=== PATIENT | male | born 1965 | race Native Hawaiian/Other Pacific Islander ===

== ENCOUNTER → 2016-03-27 | Outpatient (CLI) | payer OTHER ==
--- NOTE | 2016-03-28 08:19 | RAD ---
EXAM DESCRIPTION: XR FOOT 3 OR MORE VIEWS CLINICAL HISTORY: FOOT PAIN COMPARISON: None available FINDINGS: Three views of the left foot show no acute fracture or malalignment. The joint spaces are well maintained. There is no radiopaque foreign body or soft tissue gas. There is a small calcaneal spur at the insertion site of the Achilles tendon. Vascular calcifications are noted. Mild degenerative calcifications arise from the dorsal aspect of the left midfoot. IMPRESSION: Vascular calcifications and mild degenerative changes including calcaneal spurring, otherwise unremarkable exam. Electronically signed by: Jacky Tariq DO 03/28/2016 08:17
== END ==
LOC: RAD 18:06
PROVIDERS: ATTEND Nurse Practitioner Family
DX: M10.9 Gout, unspecified (principal); M77.32 Calcaneal spur, left foot; I70.202 Unspecified atherosclerosis of native arteries of extremities, left leg; M14.872 Arthropathies in other specified diseases classified elsewhere, left ankle and foot